=== PATIENT | female | born 1965 | race Caucasian/White ===

== ENCOUNTER → 2023-02-19 | Outpatient (CLI) | payer BC ==
[2023-02-19 12:25] LABS: ALBUMIN 3.6 g/dL (3.5-5.0); BILIRUBIN,TOTAL 0.3 mg/dL (0.2-1.0); CREATININE 0.9 mg/dL (0.5-1.5); POTASSIUM 4.5 mmol/L (3.5-5.1); TOTAL PROTEIN, SERUM 7.1 g/dL (6.0-8.3)
== END | disposition home or self-care (01) ==
LOC: LAB 09:43
PROVIDERS: ATTEND Student in an Organized Health Care Education/Training Program
DX: R07.89 Other chest pain (principal)
CPT/HCPCS: 36415; 80053

== ENCOUNTER → 2023-02-23 | Outpatient (CLI) | payer BC ==
[~2023-02-23] MED LIST: IOHEXOL 350 MG/ML 100ML INFUS..BTL IV ONE; NITROGLYCERIN 4.1 GM SPRAY TL ONE
== END | disposition home or self-care (01) ==
LOC: RAH 08:50
PROVIDERS: ATTEND Student in an Organized Health Care Education/Training Program
DX: K44.9 Diaphragmatic hernia without obstruction or gangrene (principal); R07.89 Other chest pain; M47.815 Spondylosis without myelopathy or radiculopathy, thoracolumbar region
CPT/HCPCS: 75574; Q9967

== ENCOUNTER 2023-03-23 07:38 | Observation (INO) | payer BC ==
[2023-03-19 16:03] VITALS: BP 119/69; PULSE 68; RESP 16
[2023-03-19 16:17] LABS: BASOPHILS # (AUTO) 0.03 K/uL (0.00-0.20); BASOPHILS % (AUTO) 0.5 % (0.0-5.0); EOSINOPHILS # (AUTO) 0.15 K/uL (0.00-0.70); EOSINOPHILS % (AUTO) 2.5 % (0.0-8.0); HEMATOCRIT 42.4 % (36-48); IMMATURE GRANULOCYTE ABSOLUTE 0.01 K/uL (0-1); LYMPHOCYTES % (AUTO) 32.8 % (21.0-51.0); MEAN CORPUSCULAR HEMOGLOBIN 27.5 pg (27.0-33.0); MEAN CORPUSCULAR HGB CONC 31.6 g/dL (32.0-36.0); MEAN CORPUSCULAR VOLUME 87.1 fL (79-99); MONOCYTES # (AUTO) 0.5 K/uL (0.1-1.0); MONOCYTES % (AUTO) 8.1 % (3.0-13.0); NEUTROPHILS # (AUTO) 3.4 K/uL (1.8-7.7); NEUTROPHILS % (AUTO) 55.9 % (40.0-77.0); PLATELET COUNT (AUTO) 312 K/uL (130-400); RED BLOOD CELL COUNT(AUTO) 4.87 MIL/uL (4.00-5.50); RED CELL DISTRIBUTION WIDTH 13.5 % (11.0-15.5)
[2023-03-19 16:34] LABS: ALBUMIN 3.8 g/dL (3.5-5.0); BILIRUBIN,TOTAL 0.2 mg/dL (0.2-1.0); CREATININE 0.9 mg/dL (0.5-1.5); POTASSIUM 4.6 mmol/L (3.5-5.1); TOTAL PROTEIN, SERUM 7.4 g/dL (6.0-8.3)
[2023-03-23] VITALS (24 sets, daily range): BP systolic 54–163; BP diastolic 74–101; PULSE 61–99; RESP 9–18; O2SAT 98
[~2023-03-23] VITALS: Ht 172.7 cm; Wt 87.0 kg
[~2023-03-23 07:38] MED LIST changes: +BUSP10TA3 PO; +DEXL60CA3 PO; +HYDR-3421 PO; -IOHEXOL 350 MG/ML 100ML INFUS..BTL IV ONE; -NITROGLYCERIN 4.1 GM SPRAY TL ONE; +SUCR1TAB2 PO; +TRINTELLIX PO
[2023-03-23] MEDS ORDERED: LACTATED RINGERS 1000ML 1,000 ML IV ONE (08:17)
[2023-03-23] MEDS: CEFAZOLIN SODIUM 2 GM VIAL ONE ×2 (08:32→11:21)
[2023-03-23] MEDS ORDERED: HYDROMORPHONE 1 MG INJ ONE (09:26)
[2023-03-23] MEDS ORDERED: FAMOTIDINE 20MG VIAL IV ONE (09:26)
[2023-03-23] MEDS ORDERED: LIDOCAINE PF 100MG/5ML (2%) SYRINGE 5ML ONE (09:29)
[2023-03-23] MEDS ORDERED: ROCURONIUM 10MG/1ML SYR 10 MG/ML ML ONE ×2 (09:29→12:00)
[2023-03-23] MEDS ORDERED: GLYCOPYRROLATE 1 MG/5 ML SYRINGE ONE (09:29)
[2023-03-23] MEDS ORDERED: PROPOFOL 10 MG/ML 20ML VIAL IV ONE ×2 (09:29→10:03)
[2023-03-23] MEDS ORDERED: SUCCINYLCHOLINE 200MG/10ML SYR ONE (09:29)
[2023-03-23] MEDS ORDERED: FENTANYL CITRATE PF 50 MCG/1 ML 2ML VIAL ONE ×2 (09:29→15:45)
[2023-03-23] MEDS ORDERED: BUPIVACAINE/PF 0.5% 30ML VIAL ONE (09:36)
[2023-03-23] MEDS ORDERED: MIDAZOLAM HCL 1 MG/ML 2ML VIAL ONE (09:44)
[2023-03-23] MEDS ORDERED: IOHEXOL-350 50ML VIAL IV ONE (09:54)
[2023-03-23] MEDS ORDERED: EPHEDRINE SULFATE 50 MG/ML AMPULE ONE (10:35)
[2023-03-23] MEDS ORDERED: CEFAZOLIN SODIUM 1 GM VIAL ONE (14:42)
[2023-03-23] MEDS ORDERED: NEOSTIGMINE METHYLSULFATE 1MG/ML IV ONE (14:50)
[2023-03-23] MEDS ORDERED: ONDANSETRON 4MG INJ ONE ×2 (15:14→15:45)
[2023-03-23] MEDS ORDERED: ONDANSETRON 4MG INJ IVP PRN (15:30)
[2023-03-23] MEDS ORDERED: HYDROXYZINE 25 MG TABLET PO PRN (15:30)
[2023-03-23] MEDS ORDERED: SCOPOLAMINE HYDROBROMIDE 1 EACH ADH..PATCH TD ONE ×2 (15:30→16:27)
[2023-03-23] MEDS ORDERED: PROCHLORPERAZINE 10MG/2ML INJ IV PRN (15:30)
[2023-03-23] MEDS ORDERED: HYDROCODONE/ACETAMINOPHEN 7.5/325 MG 15 ML UDCUP PO PRN (15:30)
[2023-03-23] MEDS ORDERED: MORPHINE 4 MG SYG IVP PRN (15:30)
[2023-03-23] MEDS ORDERED: GABAPENTIN 100 MG CAPSULE PO PRN (15:30)
[2023-03-23] MEDS ORDERED: KETOROLAC 30MG VIAL (30MG/ML) ONE (16:28)
[2023-03-23] MEDS: KETOROLAC 30MG VIAL (30MG/ML) IV PRN (16:49)
[2023-03-23] MEDS: BUSPIRONE HCL 5 MG TABLET PO SCH (20:17)
[2023-03-23] MEDS ORDERED: TRINTELLIX 10 MG PO SCH (21:00)
[2023-03-23] MEDS: D5LR-20 MEQ KCL 1000 ML 1,000 ML IV SCH (23:44)
[2023-03-24] MEDS: D5LR-20 MEQ KCL 1000 ML 1,000 ML IV SCH (00:02)
[2023-03-24] MEDS: KETOROLAC 30MG VIAL (30MG/ML) IV PRN ×2 (02:58→09:36)
[2023-03-24 04:18] VITALS: BP 122/74; PULSE 69; RESP 18
[2023-03-24 07:25] VITALS: BP 130/77; PULSE 84; RESP 18
[2023-03-24 07:55] VITALS: O2SAT 95
[2023-03-24] MEDS ORDERED: ENOXAPARIN SODIUM 30 MG/0.3 ML SQ SCH (09:00)
[2023-03-24] MEDS: BUSPIRONE HCL 5 MG TABLET PO SCH (09:00)
[2023-03-24] MEDS ORDERED: PANTOPRAZOLE 40 MG/VIAL IVP SCH (09:00)
== END 2023-03-24 11:15 | disposition home or self-care (01) ==
LOC: DAH 07:38 → INTOOBSV 07:39 → DAHIP 07:39 → EDSTATUS 14:00 → WSH 16:55
PROVIDERS: ADMIT Surgery; ATTEND Surgery
DX: K44.9 Diaphragmatic hernia without obstruction or gangrene (principal); J98.6 Disorders of diaphragm; K21.00 Gastro-esophageal reflux disease with esophagitis, without bleeding; K80.20 Calculus of gallbladder without cholecystitis without obstruction; R10.13 Epigastric pain; K76.0 Fatty (change of) liver, not elsewhere classified; K57.90 Diverticulosis of intestine, part unspecified, without perforation or abscess without bleeding; F32.9 Major depressive disorder, single episode, unspecified; F14.90 Cocaine use, unspecified, uncomplicated; Z90.710 Acquired absence of both cervix and uterus
CPT/HCPCS: 80053; 85025; 86850 ×2; 86900 ×2; 86901 ×2; 36415 ×2; 47563; 43282; 96374; 88302; 88304; 74300; 43235; 96376; 96372; 96375; A6260; A4663; J7030; J7120 ×2; A4215 ×2; C1758; J3490 ×3; J3010 ×2; J0690 ×2; J1170; J0330; J2001; J2250; J2704 ×2; J2405 ×2; J1885 ×3; J2710; J0665; Q9967; J3480 ×2; A4649 ×5; G0168; C1769; C1781; A4930; A4223; A4222; A4221; A4600; G0378 ×3; J1650; C9113

== ENCOUNTER → 2025-04-10 | Outpatient (CLI) | payer BC ==
[~2025-04-10] MED LIST changes: +GADOTERATE MEGLUMINE 10 MMOL/20 ML VIAL IV ONE
--- NOTE | 2025-04-11 11:33 | HMCIMG ---
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 Visualized lung bases are clear. LIVER Liver is enlarged, measuring up to approximately 18 cm in craniocaudal dimension, with diffuse signal changes compatible with hepatic steatosis. Multiple small, diffusely scattered unilocular and multilocular T2 hyperintense, nonenhancing cystic lesions are present in both hepatic lobes, measuring up to approximately 1.5 cm, consistent with benign hepatic cysts. No suspicious arterially enhancing or diffusion-restricting hepatic lesion is identified. GALLBLADDER AND BILE DUCTS Gallbladder is surgically absent. The common bile duct is mildly to moderately dilated, measuring up to approximately 1.4 cm, with smooth tapering toward the ampulla and no intraluminal filling defect or mural thickening. No intrahepatic biliary ductal dilatation is demonstrated. PANCREAS Pancreas is normal in size and signal without focal mass or ductal dilatation. SPLEEN Spleen is normal in size and signal without focal lesion. ADRENAL GLANDS Adrenal glands are normal in size and morphology without discrete nodules. KIDNEYS Both kidneys are normal in size and cortical thickness without hydronephrosis, solid mass, or suspicious enhancing lesion. STOMACH AND BOWEL Limited evaluation of the stomach and visualized small and large bowel loops shows no evidence of obstruction, focal mural thickening, or mass. No discrete residual or recurrent ileal mass is identified within the field of view. LYMPH NODES No pathologically enlarged abdominopelvic lymph nodes are seen. VASCULATURE Abdominal aorta and major visceral branches are normal in caliber without aneurysm or dissection. Portal and hepatic veins are patent. PERITONEUM AND MESENTERY No ascites or peritoneal/mesenteric nodularity is identified. OSSEOUS STRUCTURES No suspicious osseous lesion is demonstrated. IMPRESSION * Status post ileal neuroendocrine tumor resection without identifiable residual or recurrent mass in the abdomen and no abdominopelvic lymphadenopathy or hepatic metastasis. * Hepatomegaly with diffuse hepatic steatosis and multiple small benign-appearing hepatic cysts measuring up to 1.5 cm, without suspicious enhancing liver lesion. * Postcholecystectomy state with smooth mild to moderate dilation of the common bile duct to approximately 1.4 cm and no visible choledocholithiasis or obstructing lesion, likely physiologic in this context. /[place]
== END | disposition home or self-care (01) ==
LOC: RAH 10:39
PROVIDERS: ATTEND Surgery Surgical Oncology
DX: K76.0 Fatty (change of) liver, not elsewhere classified (principal); D3A.8 Other benign neuroendocrine tumors; R16.0 Hepatomegaly, not elsewhere classified; K76.89 Other specified diseases of liver; K83.8 Other specified diseases of biliary tract; Z90.49 Acquired absence of other specified parts of digestive tract
CPT/HCPCS: 74183; A9575